=== PATIENT | male | born 1975 | race Caucasian/White ===

== ENCOUNTER → 2024-04-25 06:08 | Outpatient (CLI) | payer OTHER ==
[2024-04-25 07:23] LABS: HEMATOCRIT 42.3 % (39.0-48.0); HEMOGLOBIN 14.7 g/dL (13-16.00); MEAN CELL VOLUME 86.3 fL (80.0-100.00); MEAN CORPUSCULAR HEMOGLOBIN 30.1 pg (27.00-32.0); MEAN CORPUSCULAR HGB CONC 34.9 g/dl (32.0-36.0); PLATELET COUNT 175 K/uL (150-450); RED CELL DISTRIBUTION WIDTH 14.1 % (11.5-14.5)
[2024-04-25 08:23] LABS: % SATURACION 18.9 % (20-50); ALBUMIN 4.5 gm/dL (3.4-5.0); BILIRUBIN TOTAL 1.77 mg/dL (0.3-1.2); CALCIUM 9.3 mg/dL (8.5-10.1); CREATININE SERUM 0.84 mg/dL (0.70-1.30); FERRITIN 196.2 NG/ML (26-388); GFR 97.12; GLOBULINA 2.7 G/DL (2.4-3.5); POTASSIUM 3.93 mEq/L (3.5-5.1); T4 FREE 0.85 NG/ML (0.76-1.46); TOTAL PROTEIN 7.2 gm/dL (6.4-8.2); TSH 2.23 uIU/mL (0.358-3.74)
[2024-04-25 08:42] LABS: MANUAL PLATELET COUNT 238
[2024-04-25 08:43] LABS: PLATELET ESTIMATE NORMAL (NORMAL)
[2024-04-25 11:15] LABS: FOLIC ACID > 20.00 ng/ml (4.78-20)
[2024-04-27 15:04] LABS: ANTI THYROID PEROXIDASE < 9 IU/mL (0-34); TRANSFERIN 259 mg/dL (177-329); hav igm Negative (Negative); hcv Non Reactive (Non Reactive); hep b c Negative (Negative); hep b s ag Negative (Negative); hgb a 54.9 % (96.4-98.8); hgb a2 3.3 % (1.8-3.2); hgb f 0 % (0.0-2.0); hgb s 41.8 % (0.0)
[2024-04-28 10:07] LABS: g6pd quant 263 (127-427); rbc 5.03 x10E6/uL (4.14-5.80)
[2024-04-28 16:06] LABS: PARIETAL CELL ANTIBODIES 1.2 Units (0.0-20.0)
== END | disposition home or self-care (01) ==
LOC: LAB 06:08
PROVIDERS: ATTEND Internal Medicine Hematology & Oncology
DX: D72.818 Other decreased white blood cell count (principal); D51.3 Other dietary vitamin B12 deficiency anemia; D57.3 Sickle-cell trait; D50.8 Other iron deficiency anemias; R79.9 Abnormal finding of blood chemistry, unspecified; I10 Essential (primary) hypertension; R74.02 Elevation of levels of lactic acid dehydrogenase [LDH]; K76.89 Other specified diseases of liver; D63.8 Anemia in other chronic diseases classified elsewhere; D51.0 Vitamin B12 deficiency anemia due to intrinsic factor deficiency; B20 Human immunodeficiency virus [HIV] disease; E03.8 Other specified hypothyroidism